=== PATIENT | male | born 1970 | race Two or more races ===

== ENCOUNTER → 2017-04-12 | Outpatient (CLI) | payer OTHER ==
[2014-12-20 14:50] VITALS: BP 124/86
--- NOTE | 2017-04-12 13:22 | RAD ---
Indication:Abdominal pain Grayscale images of the abdomen were obtained. Comparison none. Liver:There is some increased attenuation of the ultrasound beam by the liver compatible with fatty infiltration. A focal mass lesion is not seen in the visualized liver Gallbladder:Normal. The common bile duct diameter of approximately 4 mm is also normal Spleen:Not optimally visualized but grossly normal Pancreas:Poorly visualized and largely obscured by gas. That portion of the head of the pancreas which was seen appeared unremarkable Kidneys:Normal Abdominal aorta and IVC:Similar to the pancreas not optimally visualized. Those portions of the inferior vena cava and abdominal aorta which were seen appeared normal. Ancillary findings:None Impression:No acute or definite significant finding. Fatty infiltration of the liver. Midline structures and spleen partially obscured by gas
== END | disposition home or self-care (01) ==
LOC: US 11:54
PROVIDERS: ATTEND Family Medicine
DX: K76.0 Fatty (change of) liver, not elsewhere classified (principal)
CPT/HCPCS: 76700